=== PATIENT | female | born 1995 | race Caucasian/White ===

== ENCOUNTER 2016-09-20 11:26 | Emergency (ER) | payer OTHER ==
[~2016-09-20] VITALS: Ht 154.9 cm; Wt 62.0 kg
[~2016-09-20 11:26] MED LIST: ACET325T33 PO
[2016-09-20 11:37] VITALS: Ht 154.9 cm; Wt 62.0 kg
[2016-09-20 12:12] LABS: URINE BLOOD (Dip) POC Negative (NEGATIVE)
[2016-09-20] MEDS ORDERED: ACETAMINOPHEN 325 MG TAB PO ONE (12:30)
--- NOTE | 2016-09-20 12:31 | RADRPT ---
PROCEDURE: US OB. CLINICAL INDICATION: Size and dates , low back pain TECHNIQUE: Multiple sonographic images of the pelvis and gravid uterus were obtained. The images were reviewed on a PACS workstation. COMPARISON: No prior studies are available for comparison. FINDINGS: There is a single viable intrauterine gestation. Cardiac activity is present with 161 beats per min kenny. There is a variable presentation. The placenta is anterior. There is no evidence for an abruption or placenta previa. There is a normal amount of amniotic fluid with a MVP = 3.2 cm. Measurements were made in order to determine age. The results are as follows: BPD =3.1 cm HC =12.2 cm AC =10.4 cm FL =1.8 cm Estimated gestational age of approximately 15 weeks and 6 days based on ultrasound measurements. Clinical age: 16 weeks and 2 days. The estimated date of delivery is 03/08/17, based on ultrasound measurements. The EFW = 138 g, 19%, based on LMP age. RPTAT: AA IMPRESSION: Single viable intrauterine gestation of approximately 15 weeks and 6 days based on ultrasound measu rements. .Shaun Herndon MD, Date Time Electronically viewed and signed by .Shaun Herndon MD, on 09/20/2016 12:31 .S/
[2016-09-20] MEDS ORDERED: ACET500C5 PO (13:04)
--- NOTE | 2016-09-20 13:07 | ERD ---
ER Documentation Chief Complaint Date/Time DATE: 09/20/16 TIME: 13:05 Chief Complaint Complains of right hip pain since HPI This 20-year-old female presents of pain in her right lower back for the last 4 days. She is approximately 16 week by dates. She denies any trauma or inciting events. She denies any vaginal bleeding, abdominal pain, urinary complaints, fevers, cough, shortness breath or chest pain. ROS All systems reviewed and are negative except as per history of present illness. Medications Home Meds Active Scripts Acetaminophen* (Tylophen*) 500 Mg Capsule, 1 CAP PO Q6H Y for PAIN AND OR ELEVATED TEMP, #20 CAP Prov:RICKEY CLEANING MD 09/20/16 Acetaminophen* (Tylenol*) 325 Mg Tablet, 1 TAB PO Q6 Y for PAIN AND OR ELEVATED TEMP, #30 TAB Prov:NITISH MAC PA-C 07/01/16 Allergies Allergies: Coded Allergies: No Known Allergies (Verified Allergy, Unknown, 12/02/14) PMhx/Soc History of Surgery: No Anesthesia Reaction: No Hx Neurological Disorder: No Hx Respiratory Disorders: No Hx Cardiac Disorders: No Hx Psychiatric Problems: No Hx Miscellaneous Medical Probl: No Hx Alcohol Use: No Hx Substance Use: No Hx Tobacco Use: No Physical Exam Vitals Vital Signs Date Time Temp Pulse Resp B/P Pulse Ox O2 Delivery O2 Flow Rate FiO2 09/20/16 11:37 98.3 76 20 106/55 99 Physical Exam Const: [] Alert, [id number]. Head: Atraumatic Eyes: Normal Conjunctiva ENT: Normal External Ears, Nose and Mouth. Neck: Full range of motion..~ No meningismus. Resp: Clear to auscultation bilaterally Cardio: Regular rate and rhythm, no murmurs Abd: Soft, non tender, non distended. Normal bowel sounds Skin: No petechiae or rashes Back: No midline or flank tenderness but there is some tenderness of the right SI joint. There is no appreciable skin changes, erythema, warmth. Ext: No cyanosis, or edema Neur: Awake and alert. Patient is ambulatory without any deficits or weakness. Psych: Normal Mood and Affect Results 24 hrs Laboratory Tests Test 09/20/16 12:11 Bedside Urine Blood Negative Bedside Urine Glucose (UA) Negative Bedside Urine Ketones (LAB) Negative Bedside Urine Leukocyte Esterase (L Negative Bedside Urine Nitrite (LAB) Negative Bedside Urine Protein (LAB) Negative Bedside Urine pH (LAB) 6.5 Current Medications Medications (Trade) Dose Ordered Sig/Lucille Route PRN Reason Start Time Stop Time Status Last Admin Dose Admin Acetaminophen (Tylenol Tab) 650 mg ONCE ONCE PO 09/20/16 12:30 09/20/16 12:31 DC 09/20/16 12:06 Procedures/MDM Pelvic ultrasound shows a normal-appearing second trimester . There is no evidence of adnexal masses or acute abnormalities. Urine is negative for nitrites, leukocytes, blood, glucose. Patient was given Tylenol 650 mg of mouth. Patient presents with a four-day history of lower back pain in the axilla I joint, likely sacroiliitis or musculoskeletal low back.. Signs and symptoms are not consistent with complications of , epidural abscess, cauda equina syndrome, fracture, dislocation. She will be treated with Tylenol and instructions for back exercises at home. Patient should return for fevers, bleeding, new worsening symptoms. Departure Diagnosis: Primary Impression: Back pain Back pain location: low back pain Chronicity: acute Back pain laterality: right Sciatica presence: without sciatica Qualified Code: M54.5 - Acute right-sided low back pain without sciatica Condition: Stable Patient Instructions: Back Pain (Acute Or Chronic) Additional Instructions: Urine and ultrasound normal today. Recommend stretching and Tylenol for pain. See primary doctor for follow-up. Return for fevers, bleeding, new or worsening symptoms RICKEY CLEANING MD Sep 20, 2016 13:07
== END 2016-09-20 13:41 | disposition home or self-care (01) ==
LOC: FTE 11:26
DX: O26.892 Other specified pregnancy related conditions, second trimester (principal); M54.5 Low back pain; Z3A.16 16 weeks gestation of pregnancy
CPT/HCPCS: 76805; 81003; Z7502; Z7610

== ENCOUNTER 2017-01-26 20:36 | Outpatient (CLI) | payer OTHER ==
[~2017-01-26] VITALS: Ht 154.9 cm; Wt 70.6 kg
[~2017-01-26 20:36] MED LIST changes: +ACET500C5 PO
--- NOTE | 2017-01-26 20:53 | QN ---
Documentation Comment 21 y/o female @ 34 weeks with C/O generalized pruritis here for antepartum testing IF NST and BPP were normal will D/C home. Patient was started on Welchol and Ursodiol Bile acids already drawn in clinic Repeat antepartum testing in 2 days TESSY ROSEN MD January 26, 2017 20:53
[2017-01-26 21:09] VITALS: BP 108/65; PULSE 98; RESP 18
[2017-01-26] MEDS ORDERED: PRENAT PO (21:13)
[2017-01-26] MEDS ORDERED: FERR134T PO (21:13)
[2017-01-26] MEDS ORDERED: CALC600T5 PO (21:13)
[2017-01-26] MEDS ORDERED: BEN50 PO (21:13)
--- NOTE | 2017-01-26 21:40 | RADRPT ---
PROCEDURE: OB ultrasound for biophysical profile CLINICAL INDICATION: Biophysical profile. . TECHNIQUE: Multiple sonographic images of the pelvis were obtained. Transabdominal views are obta ined. COMPARISON: None FINDINGS: Single intrauterine gestation. Presentation: Cephalic. Placenta: Anterior. No evidence of placental abruption. No evidence of placenta previa. breathing movement = 2/2 tone = 2/2 motion = 2/2 ROSALINE = 2/2 ROSALINE = 14.3 cm heart rate: 130 beats per minute IMPRESSION: Single intrauterine gestation. Biophysical profile 04/19 RPTAT: AADD .Syed Victor MD, MD Date Time Electronically viewed and signed by .Syed Victor MD, on 01/26/2017 21:39 .B/
--- NOTE | 2017-01-26 23:36 | TRIAGE ---
OB Triage Datetime Report Generated by CPN: 01/26/2017 23:36 Datetime: 01/26/2017 22:17 Stage of : OB Triage Monitor Mode: External Quality: Mild Pattern: Normal: <= 5 Contractions in 10 Minutes Resting Tone [place]: Relaxed Heart Rate FHR Baseline Rate: 140 Monitor Mode: External US FHR Baseline Changes: No Baseline Change Variability: Moderate 6-25 bpm Accelerations: 15X15 Decelerations: None Category: Category I Datetime: 01/26/2017 21:45 Stage of : OB Triage Monitor Mode: External Quality: Mild Pattern: Normal: <= 5 Contractions in 10 Minutes Resting Tone [place]: Relaxed Heart Rate FHR Baseline Rate: 140 Monitor Mode: External US Variability: Moderate 6-25 bpm Accelerations: 15X15 Datetime: 01/26/2017 21:21 EGA: 34.4 Datetime: 01/26/2017 20:52 Maternal Assessment Level of Consciousness: Fully Conscious Headache: Denies Blurred Vision: No Respiratory Effort: Unlabored Nausea/Vomiting: Denies RUQ Epigastric Pain: Denies Facial Edema: None Labor Evaluation Frequency: placed Monitor Mode: External Resting Tone [place]: Relaxed Monitor Mode: External US Comments: FHT 150 Pain Assessment Pain Scale: 0 Pain Presence: None/Denies Pain Type: N/A Datetime: 01/26/2017 20:40 Time of Arrival: 01/26/2017 20:31 Arrived By: Ambulatory Arrived From: Home Chief Complaint: [id number] to OB triage w/ c/o generalized itching and worse on hands and soles of feet x 1 wk. States had blood drawn in clinic today Movement: Present Contractions: Denies/Absent Rupture of Membranes: Denies Vaginal Bleeding: None Vaginal Discharge: Denies Recent Sexual Intercouse: Denies Abdominal Trauma: Not Applicable Patient Complaints: Other Time Provider Notified: 01/26/2017 20:40 Provider Notified: Dr Osborne Initial Plan: MIKEY MAGANA
== END 2017-01-26 22:37 | disposition home or self-care (01) ==
LOC: L-D 20:36 → OBT 20:36
PROVIDERS: ATTEND Obstetrics & Gynecology
DX: O26.893 Other specified pregnancy related conditions, third trimester (principal); Z3A.34 34 weeks gestation of pregnancy
CPT/HCPCS: 76818; Z7500; G0463

== ENCOUNTER 2017-01-28 09:19 | Outpatient (CLI) | payer OTHER ==
[~2017-01-28] VITALS: Ht 154.9 cm; Wt 69.1 kg
[~2017-01-28 09:19] MED LIST changes: +BEN50 PO; +CALC600T5 PO; +FERR134T PO; +PRENAT PO
[2017-01-28 09:26] VITALS: Ht 154.9 cm; Wt 69.1 kg
--- NOTE | 2017-01-28 11:22 | RADRPT ---
PROCEDURE: US OB biophysical profile. CLINICAL INDICATION: decreased movements , pain TECHNIQUE: Multiple sonographic images of the pelvis were obtained. The images were reviewed on a PACS workstation. COMPARISON: 01/26/17 FINDINGS: There is a single viable intrauterine gestation. Cardiac activity is present with 152 beats per min [place]. There is a vertex presentation. The placenta is anterior. There is no evidence of placental abruption. There is a normal amount of amniotic fluid with an ROSALINE = 17.1 cm. Biophysical profile: movement 2/2 tone 2/2. breathing 2/2 ROSALINE 2/2 Total 04/19 RPTAT: AA . IMPRESSION: Normal biophysical profile. . .Shaun Herndon MD, MD Date Time Electronically viewed and signed by .Shaun Hernodn MD, on 01/28/2017 11:21 .S/
--- NOTE | 2017-01-28 11:59 | TRIAGE ---
OB Triage Datetime Report Generated by CPN: 01/28/2017 11:59 Datetime: 01/28/2017 10:17 Labor Evaluation Frequency: 0 Monitor Mode: External Heart Rate FHR Baseline Rate: 135 Monitor Mode: External US FHR Baseline Changes: No Baseline Change Variability: Moderate 6-25 bpm Accelerations: 15X15 Decelerations: None Category: Category I Pain Assessment Pain Presence: None/Denies Datetime: 01/28/2017 09:29 Labor Evaluation Frequency: 0 Monitor Mode: External Heart Rate FHR Baseline Rate: 125 Monitor Mode: External US FHR Baseline Changes: No Baseline Change Variability: Moderate 6-25 bpm Accelerations: 15X15 Decelerations: None Category: Category I Pain Assessment Pain Presence: None/Denies Datetime: 01/28/2017 09:22 Stage of : OB Triage Assessment Type: Triage Maternal Assessment Level of Consciousness: Fully Conscious DTR's/Clonus: DTRs 2+; No Clonus Headache: Denies Blurred Vision: No Respiratory Effort: Unlabored; Regular Rhythm; Equal Expansion Breath Sounds, Left: Clear and Equal Breath Sounds, Right: Clear and Equal Nausea/Vomiting: Denies RUQ Epigastric Pain: Denies Lower Extremities Edema: None Degree: None Upper Extremities Edema: None Degree: None Facial Edema: None Fall Risk Assessment History of Falling: (0) No Secondary Diagnosis: (0) No Ambulatory Aid: (0) Bedrest/Nurse Assist IV Therapy: (0) No Gait: (0) Normal/Bedrest/Immobile Mental Status: (0) Oriented to Own Ability Fall Score: 0 Fall Risk Score Definition: No Risk: No action required Datetime: 01/28/2017 09:10 Time of Arrival: 01/28/2017 09:10 EGA: 34.6 Arrived By: Ambulatory Arrived From: Office Chief Complaint: ITCHING Movement: Present Contractions: Denies/Absent Rupture of Membranes: Denies Vaginal Bleeding: None Vaginal Discharge: Denies Recent Sexual Intercouse: Denies Abdominal Trauma: Not Applicable Patient Complaints: None Time Provider Notified: 01/28/2017 09:57 Provider Notified: DRE Initial Plan: BPP, ROSALINE Datetime: 01/26/2017 21:21 Time of Arrival: 01/28/2017 09:10 EGA: 34.6 Arrived By: Ambulatory Arrived From: Office Chief Complaint: CHOLESTASIS, ITCHING Movement: Present Contractions: Denies/Absent Rupture of Membranes: Denies Vaginal Bleeding: None Vaginal Discharge: Denies Recent Sexual Intercouse: Denies Abdominal Trauma: Not Applicable Patient Complaints: None Time Provider Notified: 01/28/2017 09:57 Provider Notified: DRE
--- NOTE | 2017-01-28 18:02 | QN ---
Documentation Comment iup 34 weeks cholestasis of vss exan wnl us wnl nst reactive a/p iup 34 weeks cholestatis fu nst ERNESTO WOODSON MD January 28, 2017 18:02
== END 2017-01-28 11:45 | disposition home or self-care (01) ==
LOC: OBT 09:19 → L-D 09:20 → OBT 11:45
PROVIDERS: ATTEND Obstetrics & Gynecology
DX: O26.613 Liver and biliary tract disorders in pregnancy, third trimester (principal); K83.1 Obstruction of bile duct; Z3A.34 34 weeks gestation of pregnancy
CPT/HCPCS: 76818; G0463

== ENCOUNTER 2017-02-01 10:05 | Outpatient (CLI) | payer OTHER ==
[~2017-02-01] VITALS: Ht 154.9 cm; Wt 70.2 kg
[~2017-02-01 10:05] MED LIST changes: -ACET325T33 PO; -ACET500C5 PO
[2017-02-01 10:25] VITALS: BP 104/55
[2017-02-01 10:26] VITALS: Ht 154.9 cm; Wt 70.2 kg
--- NOTE | 2017-02-01 11:33 | RADRPT ---
PROCEDURE: US OB biophysical profile. CLINICAL INDICATION: evaluation, cholestasis TECHNIQUE: Multiple sonographic images of the pelvis were obtained. The images were reviewed on a PACS workstation. COMPARISON: Obstetrical ultrasound from 01/28/2017 FINDINGS: There is a single viable intrauterine gestation. Cardiac activity is present with 150 beats per min [place]. There is a vertex presentation. The placenta is anterior. There is no evidence of placental abruption. There is a normal amount of amniotic fluid with an ROSALINE = 17.6 cm. Biophysical profile: movement 2/2 tone 2/2. breathing 2/2 ROSALINE 2/2 Total 04/19 RPTAT: AA . IMPRESSION: Normal biophysical profile. Physician Viry Date Time Electronically viewed and signed by Physician Viry on 02/01/2017 11:33 /
--- NOTE | 2017-02-01 13:25 | TRIAGE ---
OB Triage Datetime Report Generated by CPN: 02/01/2017 13:24 Datetime: 02/01/2017 13:01 Stage of : OB Triage Labor Evaluation Frequency: 0 Monitor Mode: External Pattern: Normal: <= 5 Contractions in 10 Minutes Resting Tone [place]: Relaxed Heart Rate FHR Baseline Rate: 145 Monitor Mode: External US Variability: Moderate 6-25 bpm Accelerations: 15X15 Decelerations: None Category: Category I Pain Presence: None/Denies Datetime: 02/01/2017 12:10 Stage of : OB Triage Labor Evaluation Frequency: 0 Monitor Mode: External Pattern: Normal: <= 5 Contractions in 10 Minutes Resting Tone [place]: Relaxed Heart Rate FHR Baseline Rate: 145 Monitor Mode: External US Variability: Moderate 6-25 bpm Accelerations: 15X15 Decelerations: None Category: Category I Pain Presence: None/Denies Pain Type: N/A Datetime: 02/01/2017 11:28 Labor Evaluation Frequency: 0 Monitor Mode: External Pattern: Normal: <= 5 Contractions in 10 Minutes Resting Tone [place]: Relaxed Heart Rate FHR Baseline Rate: 150 Monitor Mode: External US Variability: Moderate 6-25 bpm Accelerations: 15X15 Category: Category I Datetime: 02/01/2017 10:30 Stage of : OB Triage Assessment Type: Triage Maternal Assessment Level of Consciousness: Fully Conscious DTR's/Clonus: DTRs 2+; No Clonus Headache: Denies Blurred Vision: No Respiratory Effort: Unlabored; Regular Rhythm; Equal Expansion Breath Sounds, Left: Clear and Equal Breath Sounds, Right: Clear and Equal Nausea/Vomiting: Denies RUQ Epigastric Pain: Denies Lower Extremities Edema: None Degree: None Upper Extremities Edema: None Degree: None Facial Edema: None Temperature Route: Oral Fall Risk Assessment History of Falling: (0) No Secondary Diagnosis: (0) No Ambulatory Aid: (0) Bedrest/Nurse Assist IV Therapy: (0) No Gait: (0) Normal/Bedrest/Immobile Mental Status: (0) Oriented to Own Ability Fall Score: 0 Fall Risk Score Definition: No Risk: No action required Labor Evaluation Frequency: 0 Monitor Mode: External Heart Rate FHR Baseline Rate: 145 Monitor Mode: External US Variability: Moderate 6-25 bpm Accelerations: 15X15 Decelerations: None Category: Category I Pain Assessment Pain Scale: 0 Pain Presence: None/Denies Pain Type: N/A Datetime: 02/01/2017 10:28 Time of Arrival: 02/01/2017 10:05 EGA: 35.3 Arrived By: Ambulatory Arrived From: Dr. Spencer Chief Complaint: SENT FROM CLINIC FOR NST/BPP WITH ROSALINE FOR CHOLYSTASIS Movement: Present Contractions: Denies/Absent Rupture of Membranes: Denies Vaginal Bleeding: None Vaginal Discharge: Denies Recent Sexual Intercouse: Denies Abdominal Trauma: Not Applicable Patient Complaints: None Time Provider Notified: 02/01/2017 12:27 Provider Notified: DR. ERICKSON Initial Plan: [id number] Datetime: 01/28/2017 11:48 Time of Arrival: 01/28/2017 11:45 EGA: 34.6 Datetime: 01/28/2017 09:22 Fall Score: 0 Fall Risk Score Definition: No Risk: No action required Datetime: 01/28/2017 09:10 EGA: 34.6 Datetime: 01/26/2017 21:21 EGA: 34.6
--- NOTE | 2017-02-01 14:21 | CONS ---
Date/Time of Note Date/Time of Note DATE: 02/01/17 TIME: 14:08 Consultation Date/Type/Reason Admit Date/Time February 01, 2017 OB triage consult Reason for Consultation This patient is a 21 years old 5 para 3 1 who had old 3 deliveries spontaneous vaginal. She was sent to triage for consultation and for evaluation of her condition due to cholestasis of . The specimen is already sent for the diagnosis of cholestasis of but as of this time the result is not ready On examination of this patient she is a well-developed well-nourished lady near term Her vital signs are basically within normal limits; blood pressure 101/55, pulse rate 98, aspiration 16, temperature 98. On examination her ear nose throat appear to be normal. Neck is normal. Abdomen is soft. At this time she does not have any contraction. heart tone is active with fairly good variability occasional acceleration no decelerations We ordered an ultrasound study; The result is a single viable intrauterine gestation in vertex presentation, heartbeat 250/min, placenta was posterior no evidence of abruptio and amniotic fluid index was 17.6 cm biophysical profile was reported 04/19 Constitutional: No chills, No diaphoresis, No disoriented, No febrile, No improved, No no complaints, No other, No poor po, No requiring IVF, No requiring O2 Eyes: No discharge, No no complaints, No other, No pain, No redness, No visual change ENT: No bleeding, No congestion, No discharge, No dysphagia, No no complaints, No other, No pain, No sore throat Respiratory: No cough, No no complaints, No other, No pain, No pleuritic pain, No shortness of breath, No sputum, No wheezing Cardiovascular: No chest pain, No edema, No lightheadedness, No no complaints, No orthopenea, No other, No palpitations, No paroxysmal nocturnal dyspnea Gastrointestinal: No blood, No constipation, No decreased appetite, No diarrhea , No flatus, No nausea, No no complaints, No other, No pain, No passing stool, No vomiting Genitourinary: No bleeding, No discharge, No dysuria, No flank pain, No hematuria, No no complaints, No other Musculoskeletal: No back pain, No bone/joint pain, No neck pain, No no complaints, No other, No restricted range of motion, No swelling Skin: other (Slight erythema of the palms of the hands and the soles of the feet she also is complaining of some pruritus in her back neck as well as hands) , No bruising, No erythema, No laceration, No no complaints, No pruritis, No rash, No skin lesions Neurologic: other (Knee-jerk reflexes normal), No confusion, No dizziness, No focal-weakness, No headache, No no complaints , No seizure, No syncope Lymphatic: other (No lymph node enlargement), No adenopathy, No lymphadema, No no complaints, No tender nodes Additional Comments Disposition. With these positive finding patient was discharged home to be followed in the clinic. Social History Smoking Status: Never smoker Exam/Review of Systems Vital Signs Vitals Vital Signs Date Time Temp Pulse Resp B/P Pulse Ox O2 Delivery O2 Flow Rate FiO2 02/01/17 10:25 98.0 104/55 Room Air ARI NUGENT MD February 01, 2017 14:20
== END 2017-02-01 13:25 | disposition home or self-care (01) ==
LOC: OBT 10:05 → L-D 10:06 → OBT 13:25
PROVIDERS: ATTEND Obstetrics & Gynecology
DX: O26.893 Other specified pregnancy related conditions, third trimester (principal); Z3A.34 34 weeks gestation of pregnancy
CPT/HCPCS: 76818; Z7500; G0463

== ENCOUNTER 2017-02-03 11:06 | Outpatient (CLI) | payer OTHER ==
[~2017-02-03] VITALS: Ht 154.9 cm; Wt 69.9 kg
[~2017-02-03 11:06] MED LIST changes: -BEN50 PO
[2017-02-03] MEDS ORDERED: URSO300C3 PO (11:21)
[2017-02-03 11:22] VITALS: BP 106/66; PULSE 118; RESP 18; Ht 154.9 cm; Wt 69.9 kg
--- NOTE | 2017-02-03 12:12 | RADRPT ---
PROCEDURE: OB ultrasound for biophysical profile CLINICAL INDICATION: Cholestasis TECHNIQUE: Multiple sonographic images of the pelvis were obtained. Transabdominal views of the g ravid uterus are available for review. The images were reviewed on a PACS workstation. COMPARISON: None FINDINGS: breathing movement = 2/2 tone = 2/2 motion = 2/2 ROSALINE = 2/2 ROSALINE = 11.9cm Single live intrauterine with cardiac activity of 129 bpm. position is cephal ic. The placenta is anterior. IMPRESSION: 1. Single live intrauterine gestation. 2. Biophysical profile = 8/8. 3. ROSALINE = 11.9 cm. RPTAT: HH .No Lozano MD, MD Date Time Electronically viewed and signed by .No Lozano MD, on 02/03/2017 12:12 .G/
--- NOTE | 2017-02-03 12:59 | CONS ---
Date/Time of Note Date/Time of Note DATE: 02/03/17 TIME: 12:55 Assessment/Plan Assessment/Plan Additional Assessment/Plan 21 y/o at 35w 5d with itching. NST reactive, BPP normal. -discharge home -f/u with OB Consultation Date/Type/Reason Admit Date/Time Reason for Consultation Itching Hx of Present Illness 21 y/o at 35w 5d here for follow-up on itching. Patient reports itching for last 2 weeks that started on her abdomen and spread to her arms including hands and her legs. Taking actigall and tried benadryl with no relief. Bile acids today were normal. Denies LOF, VB, UCs, cramping, dysuria. +FM. Getting PNC, no other complications. h/o term x3. Per HPI. Other systems negative. Past Medical History Medical History: no pertinent history Past Surgical History Past Surgical Hx: no surgical history Social History Denies habits. Smoking Status: Never smoker Exam/Review of Systems Vital Signs Vitals Vital Signs Date Time Temp Pulse Resp B/P Pulse Ox O2 Delivery O2 Flow Rate FiO2 02/03/17 11:22 97.9 118 18 106/66 Room Air Exam Gen: NAD HEENT: NCAT CV: RRR Pulm: CTAB Abd: gravid, NT Back: no CVAT Ext: NT FHT: reactive [place]: no UCs BPP: 04/19 NANCY TUTTLE February 03, 2017 12:59
== END 2017-02-03 12:55 | disposition home or self-care (01) ==
LOC: OBT 11:06 → L-D 11:07 → OBT 12:55
PROVIDERS: ATTEND Obstetrics & Gynecology
DX: O26.893 Other specified pregnancy related conditions, third trimester (principal); L29.8 Other pruritus; Z3A.35 35 weeks gestation of pregnancy
CPT/HCPCS: 76818; Z7500; G0463

== ENCOUNTER 2017-03-07 | Inpatient (IN) | payer OTHER ==
[~2017-03-07] VITALS: Ht 154.9 cm; Wt 69.6 kg
[~2017-03-07] MED LIST changes: +URSO300C3 PO
[2017-03-07 00:22] VITALS: BP 125/76; PULSE 88; RESP 16; Ht 154.9 cm; Wt 69.6 kg
--- NOTE | 2017-03-07 00:59 | TRIAGE ---
OB Triage Datetime Report Generated by CPN: 03/07/2017 00:58 Datetime: 03/07/2017 00:20 Stage of : OB Triage Datetime: 03/07/2017 00:10 Time of Arrival: 03/06/2017 23:59 Arrived By: Wheelchair Arrived From: Home Chief Complaint: PT C/O ABDOMEN ESTRADA Movement: Present Contractions: Regular Time Contractions Began: 03/06/2017 15:00 Contractions: 2-4 Rupture of Membranes: Denies Vaginal Discharge: Denies Recent Sexual Intercouse: Denies Abdominal Trauma: Not Applicable Patient Complaints: Contractions Initial Plan: TOCO AND EFM APPLICE, SVE Datetime: 03/07/2017 00:05 Stage of : OB Triage Vaginal Exam Dilatation (cms): 2.5 Effacement (%): 70 Station: -2 Exam By: DENZEL MARTÍNEZ Membrane Status: Intact Datetime: 02/03/2017 12:46 Stage of : OB Triage Maternal Assessment Level of Consciousness: Fully Conscious Labor Evaluation Frequency: NONE Monitor Mode: External Resting Tone [place]: Relaxed Heart Rate FHR Baseline Rate: 145 Monitor Mode: External US Variability: Moderate 6-25 bpm Accelerations: 15X15 Decelerations: None Pain Assessment Pain Scale: 0 Pain Goal: 3 Membrane Status: Intact Vaginal Bleeding: None Datetime: 02/03/2017 11:18 Assessment Type: Triage Maternal Assessment Level of Consciousness: Fully Conscious DTR's/Clonus: DTRs 2+; No Clonus Headache: Denies Blurred Vision: No Respiratory Effort: Unlabored; Regular Rhythm; Equal Expansion Breath Sounds, Left: Clear and Equal Breath Sounds, Right: Clear and Equal Nausea/Vomiting: Denies RUQ Epigastric Pain: Denies Lower Extremities Edema: None Degree: None Upper Extremities Edema: None Degree: None Facial Edema: None Fall Risk Assessment History of Falling: (0) No Secondary Diagnosis: (0) No Ambulatory Aid: (0) Bedrest/Nurse Assist IV Therapy: (0) No Gait: (0) Normal/Bedrest/Immobile Mental Status: (0) Oriented to Own Ability Datetime: 02/03/2017 11:15 Time of Arrival: 02/03/2017 11:00 Arrived By: Ambulatory Arrived From: Home Chief Complaint: PT HERE FOR NST/BPP FOR CHOLESTASIS OF Movement: Present Contractions: Denies/Absent Rupture of Membranes: Denies Vaginal Bleeding: None Vaginal Discharge: Denies Recent Sexual Intercouse: Denies Abdominal Trauma: Not Applicable Patient Complaints: None Time Provider Notified: 02/03/2017 12:35 Provider Notified: DRE Initial Plan: BPP/NST Datetime: 02/03/2017 11:14 Monitor Mode: External Monitor Mode: External US Datetime: 01/28/2017 09:22 Fall Score: 0 Fall Risk Score Definition: No Risk: No action required Datetime: 01/28/2017 09:10 EGA: 34.6 Datetime: 01/26/2017 21:21 EGA: 34.6
[2017-03-07] MEDS ORDERED: ACETAMINOPHEN/CODEINE #3 TAB PO PRN ×3 (01:00→23:00)
[2017-03-07] MEDS ORDERED: BUTORPHANOL 2 MG INJ IV PRN (01:00)
[2017-03-07] MEDS ORDERED: LIDOCAINE 1% (MPF) 30 ML INJ INJ PRN (01:00)
[2017-03-07] MEDS ORDERED: MISOPROSTOL 200 MCG TAB PR PRN ×2 (01:00→23:00)
[2017-03-07] MEDS ORDERED: IBUPROFEN 600 MG TAB PO PRN (01:00)
[2017-03-07] MEDS ORDERED: MINERAL OIL LIGHT 10 ML VIAL TOP ONE ×2 (01:00→17:00)
[2017-03-07] MEDS ORDERED: CARBOPROST 250 MCG INJ IM PRN ×2 (01:00→23:00)
[2017-03-07] MEDS ORDERED: METHYLERGONOVINE 0.2 MG INJ IM PRN ×2 (01:00→23:00)
[2017-03-07] MEDS: LACTATED RINGER'S 1,000 ML IV SCH ×4 (01:35→19:28)
[2017-03-07 02:51] LABS: ADD SCAN DIFF NO
[2017-03-07 02:53] LABS: BASOPHILS % 0.2 % (0.0-2.0); EOSINOPHILS # 0.1 10^3/ul (0.0-0.5); EOSINOPHILS % 1.1 % (0.0-7.0); HEMATOCRIT 28.9 % (37.0-47.0); HEMOGLOBIN 8.7 g/dl (12.0-16.0); LYMPHOCYTES # 3.1 10^3/ul (0.8-2.9); LYMPHOCYTES % 31.6 % (15.0-51.0); MEAN CORPUSCULAR HGB CONC 30.1 g/dl (32.0-37.0); MONOCYTE # 0.7 10^3/ul (0.3-0.9); MONOCYTES % 7.1 % (0.0-11.0); NEUTROPHIL # 5.9 10^3/ul (1.6-7.5); NEUTROPHILS % 59.6 % (39.0-77.0); NUCLEATED RED BLOOD CELLS% 0.2 /100WBC (0.0-0.0); PLATELET COUNT 358 10^3/UL (140-415); RED BLOOD COUNT 3.96 10^6/ul (4.20-5.40); RED CELL DISTRIBUTION WIDTH 16.1 % (11.5-14.5); WHITE BLOOD COUNT 9.8 10^3/ul (4.8-10.8)
[2017-03-07 03:09] LABS: INR 0.98; PARTIAL THROMBOPLASTIN TIME 20.9 Sec (25.0-35.0)
[2017-03-07] MEDS ORDERED: DIPHENHYDRAMINE 50 MG INJ IV ONE (03:30)
[2017-03-07 03:44] LABS: ALBUMIN 4.2 g/dl (3.3-4.9); ALBUMIN/GLOBULIN RATIO 1.4; BILIRUBIN,INDIRECT 0.4 mg/dl (0-1.1); BILIRUBIN,TOTAL 0.4 mg/dl (0.2-1.3); CALCIUM 9.5 mg/dl (8.4-10.2); CREATININE 0.53 mg/dl (0.44-1.00); POTASSIUM 3.6 mmol/L (3.5-5.1); TOTAL PROTEIN 7.2 g/dl (6.1-8.1); URIC ACID 5.6 mg/dl (3.1-7.9)
[2017-03-07 03:57] LABS: ADD UMIC NO; UR ASCORBIC ACID NEGATIVE (NEGATIVE); UR BILIRUBIN (Dip) NEGATIVE (NEGATIVE); UR BLOOD (Dip) NEGATIVE (NEGATIVE); UR CLARITY CLEAR (CLEAR); UR COLOR YELLOW (YELLOW); UR GLUCOSE (Dip) NEGATIVE (NEGATIVE); UR KETONES (Dip) 1+ mg/dL (NEGATIVE); UR LEUKOCYTE ESTERASE (Dip) NEGATIVE Leu/ul (NEGATIVE); UR NITRITE (Dip) NEGATIVE (NEGATIVE); UR SPECIFIC GRAVITY (Dip) 1.005 (1.003-1.030); UR TOTAL PROTEIN (Dip) NEGATIVE (NEGATIVE); UR UROBILINOGEN (Dip) NEGATIVE (NEGATIVE)
[2017-03-07] MEDS: OXYTOCIN 30 UNITS/LR 500 ML IV PRN ×2 (13:40→20:49)
[2017-03-07] MEDS ORDERED: FENTAnyl 2MCG/ML-ROPIV 0.2% 100 ML ONE (19:31)
[2017-03-07] MEDS ORDERED: FENTAnyl 2MCG/ML-ROPIV 0.2% 100 ML BAG EPI SCH (20:00)
[2017-03-07] MEDS ORDERED: ONDANSETRON 4 MG INJ IV PRN (20:00)
[2017-03-07] MEDS ORDERED: NALOXONE (0.4 MG/ML) INJ IV PRN (20:00)
[2017-03-07] MEDS ORDERED: DIPHENHYDRAMINE 50 MG INJ IV PRN (20:00)
--- NOTE | 2017-03-07 20:55 | HP ---
Date/Time of Note Date/Time of Note DATE: 03/07/17 TIME: 20:51 OB - History Hx of Present Free Text/Dictation admitted for elective induction at 40+ weeks Last Menstrual Period: May 29, 2017 Estimated Due Date: Mar 05, 2017 : 5 Para: 3 Therapeutic : 1 Care: Good Care Ultrasounds: Normal mid trimester US Obstetrical Complications: None Medical Complications: None Past Family/Social History * Past Medical, Surgical, Family and Obstetric Histories reviewed from chart. Blood Type: A+ Rubella: immune RPR/VDRL: Negative GBS Status: Unknown HBsAG: Negative OB Admission Exam Vital Signs Vital Signs Vital Signs Date Time Temp Pulse Resp B/P Pulse Ox O2 Delivery O2 Flow Rate FiO2 03/07/17 00:22 98.2 88 16 125/76 Room Air Physical Exam HEENT: WNL Heart: Rhythm Normal Lungs: Clear, Equal Abdomen: WNL Extremities: Normal Reflexes: Normal Cervical Dilatation: 1cm Effacement: 50% Station: -3 Membranes: Intact Heart Rate: 140's Accelerations: Accelerations Present Decelerations: No Decelerations Varibility: Marked Contractions on Admission: None Last 72 hours Lab Results CBC & BMP 03/07/17 01:25 Liver Function Test 03/07/17 01:25 Alanine Aminotransferase (ALT/SGPT) 71 H Albumin 4.2 Alkaline Phosphatase 233 H Aspartate Amino Transf (AST/SGOT) 42 Direct Bilirubin 0.00 Total Protein 7.2 OB Assessment/Plan Reason for admission: induction of labor Other Assessment: 40 + weeks gestation Induction Method: per Pitocin Protocol TESSY ROSEN MD Mar 07, 2017 20:54
--- NOTE | 2017-03-07 20:58 | LDN ---
Date/Time of Note Date/Time of Note DATE: 03/07/17 TIME: 20:55 Delivery Summary of a viable infant over intact perineum Weeks of Gestation 40+ Placenta Delivered: Spontaneously, Intact & Complete Meconium: none Episiotomy: No Perineal laceration: 1 Laceration repair: superficial perineal laceration was repaired with 2 0 Chromic Anesthesia type: Epidural Estimated blood loss: 300 All needle counts correct: Yes Any foreign bodies felt in the: No Problems: Infant Delivery Information Sex Sex: female Apgars 1 Minute: 9 5 Minute: 9 Suctioning Nose & mouth suctioned at oma: Yes Delee suction performed: No Umbilical Cord Umbilical cord with: 3 Vessels Cord presentations: no nuchal cord Cord Blood was obtained: Yes Mother & Baby Disposition Disposition Mom & Baby to Maternity; Good: Yes (mother and baby were recovered in good condition ) Mom transferred to: Other (maternity ) Baby to NICU: No TESSY ROSEN MD Mar 07, 2017 20:58
[2017-03-07 22:45] VITALS: BP 133/80; PULSE 97; RESP 20
[2017-03-07] MEDS: LACTATED RINGER'S 1,000 ML IV* SCH (22:58)
[2017-03-07] MEDS ORDERED: ZOLPIDEM 5 MG TAB PO PRN (23:00)
[2017-03-07] MEDS ORDERED: LANOLIN 7 GM TUBE TOP PRN (23:00)
[2017-03-07] MEDS ORDERED: DIBUCAINE 1% 30 GM OINT PR PRN (23:00)
[2017-03-07] MEDS ORDERED: BENZOCAINE 20% 56 ML SPRAY TOP PRN (23:00)
[2017-03-07] MEDS ORDERED: OXYTOCIN 30 UNITS/LR 500 ML IV PRN (23:00)
[2017-03-07] MEDS ORDERED: WITCH HAZEL/GLYCERIN PAD PR PRN (23:00)
[2017-03-08] MEDS: IBUPROFEN 600 MG TAB PO SCH ×4 (00:16→17:48)
[2017-03-08] MEDS: CEPHALEXIN 500 MG CAP PO SCH ×4 (00:16→17:49)
[2017-03-08 01:00] VITALS: BP 126/76; PULSE 90; RESP 20
[2017-03-08 04:00] VITALS: BP 122/79; PULSE 86; RESP 20
[2017-03-08] MEDS: LACTATED RINGER'S 1,000 ML IV* SCH (05:53)
[2017-03-08 07:45] LABS: ADD SCAN DIFF NO
[2017-03-08 07:46] VITALS: BP 106/79; PULSE 78; RESP 18
[2017-03-08 07:51] LABS: BASOPHILS % 0.2 % (0.0-2.0); EOSINOPHILS # 0.1 10^3/ul (0.0-0.5); EOSINOPHILS % 0.5 % (0.0-7.0); HEMATOCRIT 26.9 % (37.0-47.0); HEMOGLOBIN 8.1 g/dl (12.0-16.0); LYMPHOCYTES # 3.3 10^3/ul (0.8-2.9); LYMPHOCYTES % 21.3 % (15.0-51.0); MEAN CORPUSCULAR HEMOGLOBIN 21.7 pg (29.0-33.0); MEAN CORPUSCULAR HGB CONC 30.1 g/dl (32.0-37.0); MEAN CORPUSCULAR VOLUME 71.9 fl (82.0-101.0); MONOCYTE # 1.2 10^3/ul (0.3-0.9); MONOCYTES % 7.9 % (0.0-11.0); NEUTROPHIL # 10.8 10^3/ul (1.6-7.5); NEUTROPHILS % 69.7 % (39.0-77.0); NUCLEATED RED BLOOD CELLS% 0.1 /100WBC (0.0-0.0); PLATELET COUNT 306 10^3/UL (140-415); RED BLOOD COUNT 3.74 10^6/ul (4.20-5.40); RED CELL DISTRIBUTION WIDTH 16.2 % (11.5-14.5); WHITE BLOOD COUNT 15.5 10^3/ul (4.8-10.8)
[2017-03-08] MEDS: SENNA/DOCUSATE NA (8.6MG/50MG) TAB PO SCH (09:05)
[2017-03-08] MEDS: MAGNESIUM HYDROXIDE 30ML CUP PO SCH ×2 (09:05→21:00)
--- NOTE | 2017-03-08 13:15 | DS ---
Date/Time of Note Date/Time of Note home next day DATE: 03/08/17 TIME: 13:13 Obstetrical Discharge Record Final Diagnosis Final Diagnosis: Term delivered Other Final Diagnosis S/P vaginal delivery Vaginal Delivery Obstetrical Delivery: Spontaneous, Laceration, Repaired Complications Augmentation: Yes Condition on Discharge Physical Assessment Last Vitals: see nurses notes Voiding: Yes Bowel Movement: Yes Breast: Soft, non-tender, Filling Fundus: Firm Abdomen and Incision: soft bs + Episiotomy: NA Calf Tenderness: No Patient Condition: Good TESSY ROSEN MD Mar 08, 2017 13:15
[2017-03-08 16:10] VITALS: BP 107/69; PULSE 70; RESP 18
--- NOTE | 2017-03-08 19:16 | PD.PPDC ---
[employer]SULT[employer] Discharge Instruction Provider Information Physician Information 21 y/o female had vaginal delivery Diagnosis Final Diagnosis: S/P vaginal delivery Condition Patient Condition: Good Diet Diet: Resume Regular Diet Activity/Restrictions Activity: Normal Activity May Shower Restrictions: Nothing in the Vagina Return to Work or School: Apr 25, 2017 Follow-up Follow-up with Physician: 4, Week/Weeks (in clinic ) Return to clinic for OB Instructions: Breast Tenderness Depression TESSY ROSEN MD Mar 08, 2017 19:16
[2017-03-08] MEDS ORDERED: IBUP-1542 PO (19:17)
[2017-03-08 20:30] VITALS: BP 108/72; PULSE 65; RESP 19
[2017-03-09] MEDS: IBUPROFEN 600 MG TAB PO SCH ×3 (00:02→11:49)
[2017-03-09] MEDS: CEPHALEXIN 500 MG CAP PO SCH ×3 (00:02→11:50)
[2017-03-09] MEDS: SENNA/DOCUSATE NA (8.6MG/50MG) TAB PO SCH ×2 (00:02→09:00)
[2017-03-09] MEDS: LACTATED RINGER'S 1,000 ML IV* SCH ×2 (01:10→01:11)
[2017-03-09 04:14] VITALS: BP 112/74; PULSE 82; RESP 18
[2017-03-09 08:20] VITALS: BP 114/72; PULSE 68; RESP 18
[2017-03-09] MEDS: MAGNESIUM HYDROXIDE 30ML CUP PO SCH (09:00)
[2017-03-09] MEDS ORDERED: MEASLES,MUMPS,RUBELLA VACCINE INJ SC* ONE (09:00)
[2017-03-09] MEDS ORDERED: DIPHTH/TET/ACEL PERTUSS (ADULT) 0.5 ML VIAL IM* ONE (09:00)
[2017-03-09] MEDS ORDERED: VARICELLA VACCINE LIVE/PF 1,350 UNIT/0.5 ML ML SC* ONE (09:00)
== END 2017-03-09 13:30 | disposition home or self-care (01) | DRG 775 ==
LOC: OBT → L-D → OBT 00:40 → PP1 22:49
PROVIDERS: ADMIT Obstetrics & Gynecology; ATTEND Obstetrics & Gynecology
PROC: 10E0XZZ Delivery of Products of Conception, External Approach (ICD-10-PCS; principal; 2017-03-07)
PROC: 0HQ9XZZ Repair Perineum Skin, External Approach (ICD-10-PCS; 2017-03-07)
PROC: 3E033VJ Introduction of Other Hormone into Peripheral Vein, Percutaneous Approach (ICD-10-PCS; 2017-03-07)
DX: O48.0 Post-term pregnancy (principal); O70.0 First degree perineal laceration during delivery; Z3A.40 40 weeks gestation of pregnancy; Z37.0 Single live birth
CPT/HCPCS: 62319; 80053; 81003; 84560; 85025; 85610; 85730; 86592; 86900; 86901; 90715; 90716; G0463; J0595; J1200; J2590; J3010; J7120

== ENCOUNTER 2017-07-01 09:44 | Emergency (ER) | payer OTHER ==
[~2017-07-01] VITALS: Ht 157.5 cm; Wt 68.5 kg
[~2017-07-01 09:44] MED LIST changes: +IBUP-1542 PO
[2017-07-01 09:55] VITALS: Ht 157.5 cm; Wt 68.5 kg
[2017-07-01] MEDS ORDERED: LIDOCAINE/MYLANTA 40 ML BTL PO STA (11:43)
--- NOTE | 2017-07-01 11:44 | ERD ---
ER Documentation Chief Complaint Chief Complaint Complains of abdominal pain x 3 days HPI 21 y/o female previously healthy, presents to the ED c/o intermittent abdominal pain for 2 days. The pain is described as dull, sometimes burning, located on epigastrium and RUQ area; rated 6/10 max intensity; radiated to the back and worsen by heavy meals. The patient also complains of nausea. Denies fever, chills, jaundice, no urinary symptoms, ROS All systems reviewed and are negative except as per history of present illness. Medications Home Meds Active Scripts Ranitidine Hcl* (Zantac*) 150 Mg Tablet, 150 MG PO BID Y for EPIGASTRIC PAIN for 10 Days, #20 TAB Prov:JIGAR CARMICHAEL MD 07/01/17 Hydrocodone/Acetaminophen ([place] 5-325 Tablet) 1 Each Tablet, 1 TAB PO Q6H for SEVERE PAIN LEVEL 7-10 for 3 Days, #12 TAB Prov:JIGAR CARMICHAEL MD 07/01/17 Ibuprofen* (Ibuprofen*) 600 Mg Tablet, 600 MG PO Q6, #30 TAB 0 Refills Prov:TESSY ROSEN MD 03/08/17 Reported Medications Ursodiol* (Ursodiol*) 300 Mg Capsule, 300 MG PO TID, CAP 02/03/17 Calcium Carbonate (CALCIUM) 600 Mg Tablet, 600 MG PO DAILY, TAB 01/26/17 Ferrous Sulfate (Iron) 134 Mg Tablet, 134 MG PO DAILY, TAB 01/26/17 Multivit/Min/Fol Ac/Iron/Pren* ( S*) 1 Tab Tab, 1 TAB PO DAILY, TAB 01/26/17 Allergies Allergies: Coded Allergies: No Known Allergies (Verified Allergy, Unknown, 07/01/17) PMhx/Soc Denies personal or parental history of DM, CAD, cancer. Non smoker Denies the use of recreational drugs History of Surgery: No Anesthesia Reaction: No Hx Neurological Disorder: No Hx Respiratory Disorders: No Hx Cardiac Disorders: No Hx Psychiatric Problems: No Hx Miscellaneous Medical Probl: No Hx Alcohol Use: No Hx Substance Use: No Hx Tobacco Use: No Physical Exam Vitals Vital Signs Date Time Temp Pulse Resp B/P Pulse Ox O2 Delivery O2 Flow Rate FiO2 07/01/17 09:55 98.5 72 18 104/65 100 Physical Exam Head: Atraumatic Eyes: Normal Conjunctiva ENT: Normal External Ears, Nose and Mouth. Neck: Full range of motion..~ No meningismus. Resp: Clear to auscultation bilaterally Cardio: Regular rate and rhythm, no murmurs Abd: Soft, non tender, non distended. Normal bowel sounds Back: No midline or flank tenderness Result Diagram: 07/01/17 1155 07/01/17 1155 Results 24 hrs Laboratory Tests Test 07/01/17 11:45 07/01/17 11:55 Urine Color YELLOW Urine Clarity CLEAR Urine pH 6.0 Urine Specific [place] 1.023 Urine Ketones NEGATIVEmg/dL Urine Nitrite NEGATIVEmg/dL Urine Bilirubin NEGATIVEmg/dL Urine Urobilinogen NEGATIVEmg/dL Urine Leukocyte Esterase NEGATIVELeu/ul Urine Microscopic RBC 13/HPF Urine Microscopic WBC 2/HPF Urine Mucus FEW/HPF Urine Hemoglobin 2+mg/dL Urine Glucose NEGATIVEmg/dL Urine Total Protein NEGATIVEmg/dl White Blood Count 9.310^3/ul Red Blood Count 4.5110^6/ul Hemoglobin 10.3g/dl Hematocrit 34.6% Mean Corpuscular Volume 76.7fl Mean Corpuscular Hemoglobin 22.8pg Mean Corpuscular Hemoglobin Concent 29.8g/dl Red Cell Distribution Width 15.5% Platelet Count 74633^3/UL Mean Platelet Volume 8.7fl Neutrophils % 53.3% Lymphocytes % 36.5% Monocytes % 8.5% Eosinophils % 1.0% Basophils % 0.3% Nucleated Red Blood Cells % 0.0/100WBC Neutrophils # 4.910^3/ul Lymphocytes # 3.410^3/ul Monocytes # 0.810^3/ul Eosinophils # 0.110^3/ul Basophils # 0.010^3/ul Nucleated Red Blood Cells # 0.010^3/ul Sodium Level 146mmol/L Potassium Level 3.9mmol/L Chloride Level 106mmol/L Carbon Dioxide Level 28mmol/L Anion Gap 16 Blood Urea Nitrogen 15mg/dl Creatinine 0.61mg/dl Glucose Level 73mg/dl Calcium Level 9.6mg/dl Total Bilirubin 0.5mg/dl Direct Bilirubin 0.00mg/dl Indirect Bilirubin 0.5mg/dl Aspartate Amino Transf (AST/SGOT) 22IU/L Alanine Aminotransferase (ALT/SGPT) 33IU/L Alkaline Phosphatase 84IU/L Total Protein 8.3g/dl Albumin 4.6g/dl Globulin 3.70g/dl Albumin/Globulin Ratio 1.24 Lipase 72U/L Current Medications Medications (Trade) Dose Ordered Sig/Lucille Route PRN Reason Start Time Stop Time Status Last Admin Dose Admin Miscellaneous Medication (Gi Cocktail (2)) 40 ml ONCE STAT PO 07/01/17 11:43 07/01/17 11:47 DC 07/01/17 11:58 Procedures/MDM Abdominal pain: low suspicion for acute abdomen, differential includes: gastritis, cholelithiasis, cholecystitis. appendicitis, UTI, less likely pancreatitis, renal stone. Plan: CBC,CMP, lipase: Reviewed and showed anemia but no evidence of GI bleeding. The patient has history of iron deficiency anemia. Recommend to have an iron rich diet and follow up with PCP GI cocktail give presnting improvement of her symptoms RUQ US: Results discussed with patient FINDINGS: The liver is normal in size and echogenicity without focal mass or intrahepatic biliary dilatation. The gallbladder is contracted but grossly unremarkable. There is no pericholecystic fluid or gallbladder wall thickening or gallstones. No intra or extrahepatic biliary dilatation is seen. The common bile duct measures 2.4 mm in maximal dimension. The visualized portions of the pancreas are unremarkable with obscuration of the tail of the pancreas. No free fluid is identified. The right kidney measures 10.1 cm in length. There is normal echogenicity within the right kidney. There is no perinephric fluid collection. No hydronephrosis, mass, or calculus is seen. IMPRESSION: Unremarkable right upper quadrant ultrasound. Departure Diagnosis: Primary Impression: Abdominal pain Additional Impressions: Gastritis Anemia Condition: Stable Patient Instructions: Abdominal Pain Additional Instructions: Please schedule a follow up appointment with your primary doctor in 2 days and bring all the information and prescriptions that we have given to you today. If the doctor is unavailable and the symptoms persist or worsen, the patient should return to the hospital immediately. JIGAR CARMICHAEL MD Jul 01, 2017 11:44
[2017-07-01 12:07] LABS: BASOPHILS % 0.3 % (0.0-2.0); EOSINOPHILS # 0.1 10^3/ul (0.0-0.5); HEMATOCRIT 34.6 % (37.0-47.0); HEMOGLOBIN 10.3 g/dl (12.0-16.0); LYMPHOCYTES # 3.4 10^3/ul (0.8-2.9); LYMPHOCYTES % 36.5 % (15.0-51.0); MEAN CORPUSCULAR HEMOGLOBIN 22.8 pg (29.0-33.0); MEAN CORPUSCULAR HGB CONC 29.8 g/dl (32.0-37.0); MEAN CORPUSCULAR VOLUME 76.7 fl (82.0-101.0); MEAN PLATELET VOLUME 8.7 fl (7.4-10.4); MONOCYTE # 0.8 10^3/ul (0.3-0.9); MONOCYTES % 8.5 % (0.0-11.0); NEUTROPHIL # 4.9 10^3/ul (1.6-7.5); NEUTROPHILS % 53.3 % (39.0-77.0); PLATELET COUNT 419 10^3/UL (140-415); RED BLOOD COUNT 4.51 10^6/ul (4.20-5.40); RED CELL DISTRIBUTION WIDTH 15.5 % (11.5-14.5); WHITE BLOOD COUNT 9.3 10^3/ul (4.8-10.8)
[2017-07-01 12:13] LABS: ADD UMIC YES; UR ASCORBIC ACID NEGATIVE (NEGATIVE); UR BILIRUBIN (Dip) NEGATIVE (NEGATIVE); UR BLOOD (Dip) 2+ mg/dL (NEGATIVE); UR CLARITY CLEAR (CLEAR); UR COLOR YELLOW (YELLOW); UR GLUCOSE (Dip) NEGATIVE (NEGATIVE); UR KETONES (Dip) NEGATIVE (NEGATIVE); UR LEUKOCYTE ESTERASE (Dip) NEGATIVE Leu/ul (NEGATIVE); UR MUCUS FEW /HPF (NONE SEEN); UR NITRITE (Dip) NEGATIVE (NEGATIVE); UR RBC 13 /HPF (0-5); UR SPECIFIC GRAVITY (Dip) 1.023 (1.003-1.030); UR TOTAL PROTEIN (Dip) NEGATIVE (NEGATIVE); UR UROBILINOGEN (Dip) NEGATIVE (NEGATIVE)
[2017-07-01 12:40] LABS: ALBUMIN 4.6 g/dl (3.3-4.9); ALBUMIN/GLOBULIN RATIO 1.24; BILIRUBIN,INDIRECT 0.5 mg/dl (0-1.1); BILIRUBIN,TOTAL 0.5 mg/dl (0.2-1.3); CALCIUM 9.6 mg/dl (8.4-10.2); CREATININE 0.61 mg/dl (0.44-1.00); POTASSIUM 3.9 mmol/L (3.5-5.1); TOTAL PROTEIN 8.3 g/dl (6.1-8.1)
--- NOTE | 2017-07-01 14:08 | RADRPT ---
PROCEDURE: US Abdomen (right upper quadrant). CLINICAL INDICATION: Abdominal pain TECHNIQUE: Multiple real-time longitudinal and transverse images of the right upper quadrant of th e abdomen were acquired utilizing a curved array transducer. Images were reviewed on a high-resoluti on PACS workstation. COMPARISON: None FINDINGS: The liver is normal in size and echogenicity without focal mass or intrahepatic biliary dilatation. The gallbladder is contracted but grossly unremarkable. There is no pericholecystic fluid or gallb ladder wall thickening or gallstones. No intra or extrahepatic biliary dilatation is seen. The com mon bile duct measures 2.4 mm in maximal dimension. The visualized portions of the pancreas are unr emarkable with obscuration of the tail of the pancreas. No free fluid is identified. The right kidney measures 10.1 cm in length. There is normal echogenicity within the right kidney. There is no perinephric fluid collection. No hydronephrosis, mass, or calculus is seen. IMPRESSION: Unremarkable right upper quadrant ultrasound. RPTAT: JJ .Rohit Carlin MD, Date Time Electronically viewed and signed by .Rohit Carlin MD, on 07/01/2017 14:08 .A/
[2017-07-01] MEDS ORDERED: HYDR-906 PO (14:26)
[2017-07-01] MEDS ORDERED: RANI150T9 PO (14:26)
[2017-07-01 15:03] VITALS: BP 104/65; RESP 18; TEMP 98.7
== END 2017-07-01 15:04 | disposition home or self-care (01) ==
LOC: FTE 09:44
DX: K29.70 Gastritis, unspecified, without bleeding (principal); D64.9 Anemia, unspecified
CPT/HCPCS: 36415; 76705; 80053; 81001; 83690; 85025; Z7502; Z7610

== ENCOUNTER 2017-10-17 09:59 | Emergency (ER) | END 2017-10-17 14:25 | disposition home or self-care (01) ==